=== PATIENT | male | born 1995 | race African-American/Black ===

== ENCOUNTER 2018-02-10 21:11 | Emergency (ER) | payer SELFPAY ==
--- NOTE | 2018-02-10 21:36 | EKG REPORT ---
SEVERITY:- ABNORMAL ECG - SINUS RHYTHM ST ELEVATION SUGGESTS NORMAL VARIANT : Confirmed by: Jon Bo MD 10-Feb-2018 21:35:47
[2018-02-10] MEDS ORDERED: PREDNISONE 20 MG TABLET PO ONE (23:02)
[2018-02-10] MEDS ORDERED: ALBUTEROL SULFATE 0.083% NEB 2.5 MG/3 ML AMPUL NEB ONE (23:02)
--- NOTE | 2018-02-10 23:05 | ER Document Report ---
ED General - General Chief Complaint: Chest pain, weak, can't breathe Stated Complaint: BREATHING DIFFICULTY Time Seen by Provider: 02/10/18 22:57 Notes: Patient is a 22-year-old male presents with complaint of some pain in his chest. He has also had these episodes where he feels as if he stops breathing. Family says that several times were seem to have stopped breathing and any shaking when he starts breathing again. He does not turn blue. He does not become cyanotic. He is fully awake and alert when I shake him. Pain is intermittent chest pains been intermittent for about 2 days. Had one episode of chills and sweats. He has family history of coronary disease with his mother having an VT around age late 40s or early 50s. No family history of coronary disease at a young age. He takes no medications. Is otherwise healthy. He denies any vomiting. Nothing seems to affect the chest pain or cause her to come about. He has been coughing up a lot of yellow sputum says he feels as if he has had some wheezing. He does work as a welder fabricator. TRAVEL OUTSIDE OF THE [place] IN LAST 30 DAYS: No - Related Data Allergies/Adverse Reactions: No Known Allergies Allergy (Unverified 02/10/18 21:17) Past Medical History - Social History Smoking Status: Unknown if Ever Smoked Frequency of alcohol use: None Drug Abuse: None Family History: Reviewed & Not Pertinent Review of Systems - Review of Systems Notes: My Normal Review Basic REVIEW OF SYSTEMS: CONSTITUTIONAL : Denies fever. Denies recent illness. EENT: Denies eye, ear, throat, or mouth pain or symptoms. Denies nasal or sinus congestion. CARDIOVASCULAR: Intermittent chest pain that is substernal and nonradiating. RESPIRATORY: Coughing and congestion. GASTROINTESTINAL: Denies abdominal pain. Denies nausea, vomiting, or diarrhea. Denies constipation. Last BM: GENITOURINARY: Denies difficulty urinating, painful urination, burning, frequency, or blood in urine. MUSCULOSKELETAL: Denies neck or back pain or joint pain or swelling. SKIN: Denies rash or skin lesions. HEMATOLOGIC : Denies easy bruising or bleeding. NEUROLOGICAL: Denies altered mental status or loss of consciousness. Denies headache. Denies weakness or paralysis or loss of use of either side. Denies problems with gait or speech. Denies sensory or motor loss. ALL OTHER SYSTEMS REVIEWED AND NEGATIVE. Physical Exam - Vital signs Vitals: Temp Pulse Resp BP Pulse Ox 97.9 F 73 12 145/82 H 96 02/10/18 21:39 02/10/18 21:39 02/10/18 21:39 02/10/18 21:39 02/10/18 21:39 - Notes Notes: General Appearance: Well nourished, alert, cooperative, no acute distress, no obvious discomfort. Well-appearing. Vitals: reviewed, See vital signs table. Eyes: PERRL, EOMI, Conjuctiva clear Mouth: No decreasd moisture Lungs: Diffuse wheezing, No rales, scattered rhonci, No accessory muscle use, good air exchange bilaterally. Heart: Normal rate, Regular rythm, No murmur, no rub Abdomen: Normal BS, soft, No rigidity, No abdominal tenderness, No guarding, no rebound Extremities: strength 5/5 in all extremities, good pulses in all extremities, no edema. Skin: warm, dry, appropriate color, no rash Neuro: speech clear, oriented x 3, normal affect, responds appropriately to questions. Course - Re-evaluation Re-evalutation: 02/11/18 00:56 I performed a bedside cardiac ultrasound. Patient has good cardiac activity. He has no pericardial effusion. He is currently pain-free. His lung quintana are clear after receiving the neulizer treatment he states he feels much improved after receiving nebulizer treatment. 02/11/18 05:30 Patient's lung quintana are clear after nebulizer treatment and he feels much improved. Appears he has most likely bronchitis. These episodes where he has "pauses in his breathing" did not seem of much concern and that he never turns blue or cyanotic and when his girlfriend immediately nudges him he wakes right up without any confusion. I informed patient that he is got a quit smoking. I told him his girlfriend if he continues to have these brief episodes of respiratory pauses that he needs to follow-up and may be be tested for sleep apnea. I informed him that quitting smoking would help. I will discharge him home with an albuterol inhaler as well as steroids. His EKG showed some concave up ST segment elevation. The EKG machine read this as possible pericarditis. I do not think he has pericarditis as he does not have any current chest pain, he has no pericardial effusion on bedside ultrasound, and he does not have a fever. Informed patient to return to ER immediately if he has severe chest pain, difficulty breathing, or she feels unwell. Patient agrees with plan will be discharged home. Dictation of this chart was performed using voice recognition software; therefore, there may be some unintended grammatical errors. 02/11/18 05:31 - Vital Signs Vital signs: Temp Pulse Resp BP Pulse Ox 97.9 F 73 18 135/78 H 96 02/10/18 21:39 02/10/18 21:39 02/11/18 02:11 02/11/18 02:11 02/11/18 02:11 - Laboratory Result Diagrams: 02/11/18 00:49 02/11/18 00:49 Laboratory results interpreted by me: 02/11/18 02/11/18 00:49 00:49 RDW 14.3 H Chloride 96 L Carbon Dioxide 33 H - EKG Interpretation by Me Additional EKG results interpreted by me: 02/10/18 23:03 EKG is reviewed and interpreted by me. EKG shows sinus rhythm with a rate of 94 bpm. Patient does have some mild concave up ST segment elevation needs V4 through V6. No reciprocal ST segment depressions. NH interval, QRS duration, QTc intervals are within normal range. No old EKG available for comparison. Discharge - Discharge Clinical Impression: Bronchitis, Tobacco abuse Chest pain Qualifiers: Chest pain type: unspecified Qualified Code(s): R07.9 - Chest pain, unspecified Condition: Good Disposition: HOME, SELF-CARE Additional Instructions: Please stop smoking. Please use the albuterol inhaler as 2 puffs every 4 hours for wheezing and coughing. Please return to the ER immediately if you have difficulty breathing, recurrent worsening chest pain, fevers, or feel unwell. Please follow up with a doctor in 3-4 days for reevaluation. Prescriptions: Prednisone [Deltasone 20 mg Tablet] 3 tab PO DAILY 4 Days tablet Forms: Return to Work
--- NOTE | 2018-02-10 23:59 | RADIOLOGY REPORT (SQ) ---
EXAM DESCRIPTION: CHEST 2 VIEWS CLINICAL HISTORY: 22 years Male, cough, wheezing COMPARISON: None. NUMBER OF VIEWS/TECHNIQUE: 2, PA and Lateral LIMITATIONS: None. FINDINGS: Normal lung volume. Clear parenchyma. Normal cardiac silhouette. Intact bony thorax. IMPRESSION: No acute cardiopulmonary findings.
[2018-02-11 01:02] LABS: ABSOLUTE BASOPHILS # (AUTO) 0.1 10^3/uL (0.0-0.2); ABSOLUTE EOSINOPHILS # (AUTO) 0.2 10^3/uL (0.0-0.6); ABSOLUTE LYMPHOCYTES (AUTO) 2.3 10^3/uL (0.5-4.7); ABSOLUTE MONOCYTES (AUTO) 0.8 10^3/uL (0.1-1.4); ABSOLUTE NEUT (AUTO) 6.5 10^3/uL (1.7-8.2); BASOPHILS % (AUTO) 0.6 % (0-2); EOSINOPHILS % (AUTO) 2.3 % (0-6); HEMATOCRIT 43.4 % (37.9-51.0); HEMOGLOBIN 14.8 g/dL (13.5-17.0); LYMPHOCYTES % (AUTO) 23.1 % (13-45); MEAN CORPUSCULAR HEMOGLOBIN 31.7 pg (27.0-33.4); MEAN CORPUSCULAR HGB CONC 34.1 g/dL (32.0-36.0); MEAN CORPUSCULAR VOLUME 93 fl (80-97); MONOCYTES % (AUTO) 8.5 % (3-13); PLATELET COUNT 294 10^3/uL (150-450); RED BLOOD COUNT 4.67 10^6/uL (4.35-5.55); RED CELL DISTRIBUTION WIDTH 14.3 % (11.5-14.0); SEGMENTED NEUTROPHILS % (AUTO) 65.5 % (42-78); TOTAL CELLS COUNTED % (AUTO) 100 %; WHITE BLOOD COUNT 9.9 10^3/uL (4.0-10.5)
[2018-02-11 01:27] LABS: ANION GAP 9 (5-19); BLOOD UREA NITROGEN 15 mg/dL (7-20); CALCIUM 9.3 mg/dL (8.4-10.2); CARBON DIOXIDE 33 mmol/L (22-30); CHLORIDE 96 mmol/L (98-107); GLUCOSE 87 mg/dL (75-110); POTASSIUM 3.9 mmol/L (3.6-5.0); SODIUM 137.9 mmol/L (137-145)
[2018-02-11] MEDS ORDERED: ALBUTEROL SULFATE HFA (90 MCG/PUFF) 8 GM MDI (1 MDI/ER DISP) IH ONE (02:00)
[2018-02-11 02:13] VITALS: BP 135/78
== END 2018-02-11 02:24 | disposition home or self-care (01) ==
LOC: ER 21:11
DX: J40 Bronchitis, not specified as acute or chronic (principal); R07.9 Chest pain, unspecified; R53.1 Weakness; F17.200 Nicotine dependence, unspecified, uncomplicated
CPT/HCPCS: 93005; 94640; 99285; 36415; 85025; 80048; 84484; 71046; 93010; J7512; J3490